=== PATIENT | female | born 1950 | race Caucasian/White ===

== ENCOUNTER 2017-10-13 09:22 | Day surgery (SDC) | payer MEDICARE ==
--- NOTE | 2017-10-13 07:31 | History and Physical Report ---
DATE: 10/13/17. CHIEF COMPLAINT AND HISTORY OF CHIEF COMPLAINT: This patient presents with a history of a thoracic and lumbar radiculopathy. Due to the failure of therapy, a spinal cord stimulator trial was conducted on 09/07/2017 with 75 to 85 percent pain control. Due to the failure of therapy and the success of the trial, the patient presents today for implantation of a permanent system. PAST MEDICAL HISTORY: Chronic obstructive pulmonary disease. PAST SURGICAL HISTORY: To be provided. MEDICATIONS ON ADMISSION: To be provided. ALLERGIES: None. SOCIAL HISTORY: Noncontributory. FAMILY HISTORY: Cancer, cerebrovascular disease. REVIEW OF SYSTEMS: The patient seems appropriate and in no acute distress. The remainder of the systems review shows head and neck pain, breathing difficulties, peripheral edema. PHYSICAL EXAMINATION: General: Height and weight are not available. Weight: Unavailable. Vital Signs: Unavailable. HEENT: Within normal limits. Lungs: Clear. Heart: Regular rate and rhythm. Abdomen: Nontender. Musculoskeletal: Examination of the musculoskeletal system shows diffuse tenderness throughout the lumbar spine. Range of motion produces pain into the low back and into both lower extremities. Sensory and motor field function appears to be intact. There are some mild sensory deficits across L4 and L5. There is pain extending all the way into the midthoracic region and extending along the rib margins. Functionality of the upper and lower extremities is intact. Ambulation: No assistive device utilized. Neurologic: Cranial nerves are intact. IMPRESSION: LUMBAR AND THORACIC RADICULOPATHY, ICD-10 CODE M54.16 AND M54.14. PLAN: The patient is here for implantation of a permanent spinal cord stimulator after a successful trial. The procedure will be considered outpatient, although an overnight stay will be evaluated. JOB NUMBER: [id number] cc: Dr. Nany FISHER
[~2017-10-13 09:22] MED LIST: ACETAMINOPHEN 1,000 MG/100 ML BTL IV ONE; CEFAZOLIN 2 Gram 2 GM/50 ML BAG IVPB ONE; FAMOTIDINE 20MG TABLET PO ONE; MECLIZINE 25 MG TABLET PO ONE; METOCLOPRAMIDE 10 MG TABLET PO ONE
[2017-10-13] MEDS ORDERED: FENTANYL PF 0.25MG/5ML AMPUL IV ONE (09:23)
[2017-10-13] MEDS ORDERED: DEXAMETHASONE 4 MG/ML 1ML VIAL IVP ONE (09:23)
[2017-10-13] MEDS ORDERED: FLUMAZENIL 1MG/10ML VIAL IV ONE (09:23)
[2017-10-13] MEDS ORDERED: PROPOFOL 10 MG/ML VIAL IV ONE (09:23)
[2017-10-13] MEDS ORDERED: MIDAZOLAM HCL 2MG/2ML VIAL IV ONE (09:23)
[2017-10-13] MEDS ORDERED: CEFAZOLIN 1G VIAL IM ONE (09:23)
[2017-10-13] MEDS ORDERED: FENTANYL PF 100MCG/2ML VIAL IV ONE (09:23)
[2017-10-13] MEDS ORDERED: LIDOCAINE 1% W/EPI 1:200,000 MPF 30ML SQ ONE (09:23)
[2017-10-13] MEDS ORDERED: BUPIVACAINE 0.5% W/EPI MPF 30 ML VIAL IVP ONE (09:23)
[2017-10-13] MEDS ORDERED: LIDOCAINE 2% MDV (20MG/ML) 20ML VIAL IV ONE (09:23)
[2017-10-13] MEDS ORDERED: HYDROCODONE/APAP 7.5/325MG TABLET PO PRN ×2 (13:58)
[2017-10-13] MEDS ORDERED: OXYCODONE/APAP 10MG-325MG TABLET PO PRN ×2 (13:58)
--- NOTE | 2017-10-14 20:06 | Operative Note - [facility] ---
DATE OF SURGERY: 10/13/17 PREOPERATIVE DIAGNOSES: THORACIC AND LUMBAR RADICULITIS, ICD-10 CODE = M54.14 AND M54.16. SURGERY: 1. FLUOROSCOPIC-GUIDED EPIDURAL ACCESS RIGHT T11-12, PLACEMENT OF SPINAL CORD STIMULATOR LEAD 1, A [employer] IN[employer]INION 16 WITH 6 ELECTRODES POSITIONED LEFT AT T6. 2. FLUOROSCOPIC-GUIDED EPIDURAL ACCESS RIGHT T12-L1, PLACEMENT OF SPINAL CORD STIMULATOR LEAD 2, A [employer] 16 WITH 6 ELECTRODES POSITIONED RIGHT T6. 3. COMPLEX PROGRAMMING OF LEAD 1, OVER 20 MINUTES FOLLOWED BY COMPLEX PROGRAMMING OF LEAD 2, OVER 20 MINUTES. 4. INCISION, SUBCUTANEOUS DISSECTION, AND ANCHORING OF LEAD 1 AND LEAD 2 TO THE DEEP FASCIA USING A [employer]ENTIFIC LOCKING ANCHOR. 5. INCISION, SUBCUTANEOUS DISSECTION, AND CREATION OF SUBCUTANEOUS POUCH AT RIGHT POSTERIOR SUPERIOR GLUTEAL MARGIN FOR PLACEMENT OF GENERATOR IDENTIFIED A [employer], RECHARGEABLE, REPROGRAMMABLE. 6. TUNNELING BETWEEN LEAD POUCHES INTO GENERATOR POUCH INTERFACING EACH LEAD WITH GENERATOR. 7. PLACEMENT OF GENERATOR POUCH SECURING TO POSTERIOR FASCIA WITH NONABSORBABLE SUTURE. PLACEMENT OF LEADS INTO POUCH WITH CLOSURE OF BOTH INCISIONS WITH VICRYL FOR FASCIA, RUNNING SUBCUTICULAR VICRYL FOR SKIN. DERMABOND CLOSURE. 8. COMPLEX PROGRAMMING INTERNAL GENERATOR HOME USE, TWO STIMULATORS, RECOVERY ROOM 20 MINUTES. SURGEON: BARRETT ALEJANDRE D.O. ANESTHESIA: LOCAL SEDATION. ANESTHESIA PROVIDER: JOVANY JALLOH CRNA. INDICATIONS: This patient presents with a history of intractable lumbar radiculopathy and thoracic radiculopathy. Due to the failure of therapy, a spinal cord stimulator trial was conducted with 75 to 85% pain control. Due to the failure of all therapies and the success of the trial, she presents today for implantation of a permanent system. SURGERY: Intravenous line, vital sign monitoring, IV sedation, prepped and draped sterile technique. Patient positioned prone. Sterile prep, sterile technique, and under imaging, right of the midline, the epidural interspace at 12-1 and 11-12 were infiltrated and then using two Epimed needles with loss-of- resistance, the space was accessed. At 11-12, spinal cord stimulator lead 1, a [employer] Infinion 16 with 6 electrodes positioned left at T6. With the epidural access, same technique at 12-1 of spinal cord stimulator lead 2, a [employer] Infinion 16 with 6 electrodes, positioned right at T6. Complex programming of lead 1 over 20 minutes followed by complex programming of lead 2 over 20 minutes resulting in a complete pattern of stimulation across the back and into the legs with the patient indicating we are in all of the areas of the pain. She was given the option to implant or continue to program and she opted to implant. Questions were repeated with the same response. The skin above and below each needle infiltrated, incision made, and subcutaneous dissection was conducted to the supraspinous fascia. Each lead was then anchored to the supraspinous fascia with a [employer] locking anchor. At the right posterior superior gluteal margin, a site picked by the patient for the generator, skin infiltrated, incision made, and subcutaneous dissection was conducted to form a pouch of suitable size and depth for the generator. Antibiotic irrigation and Bovie for hemostasis. The generator was placed into the pouch and secured to the fascia with nonabsorbable suture. The leads were placed into their own pouch and then both incisions were closed with Vicryl for fascia and a running subcuticular Vicryl for skin. A Dermabond closure was then used to approximate the edges of both wounds. She was transported to the Recovery Room stable showing no side-effects from the procedure or the sedation. When fully awake and alert, by her request she was prepared for discharge. DISCHARGE INSTRUCTIONS: 1. The sites will remain clean and dry. No showering or bathing in any way that would disrupt dressings, although the Dermabond will allow showing in 24 to 48 hours. 2. Standard medications resumed, including Levaquin, the antibiotic 500 mg once a day for 14 days. 3. The office will contact the patient at home to set up an appointment to evaluate the incisions in 7 to 10 days. Until then, her activity level should stay low. All other instructions provided, numbers to contact if problems given. She was then prepared for discharge. cc: Primary JOB NUMBER: [id number] [facility]
--- NOTE | 2017-10-15 09:27 | RADIOLOGY REPORT ---
EXAM: AP THORACOLUMBAR SPINE HISTORY: POST SPINAL CORD STIMULATOR IMPLANT. TECHNIQUE: A single AP view of the thoracolumbar spine was obtained. Comparison: None. FINDINGS: There is a battery pack overlying the right lower quadrant of the abdomen. Wires extend from this to the spine at the L3 level and then ascend up to the level of the body of T6. There appear to be vertebroplasties involving the bodies of T12 and L1. IMPRESSION: SPINAL STIMULATOR WIRES EXTEND UP TO THE T6 LEVEL. JOB NUMBER: [id number] [facility]
== END 2017-10-13 15:05 | disposition home or self-care (01) ==
LOC: SUR 09:22 → MEDSURG 13:54 → SUR 15:05
PROVIDERS: ATTEND Pain Medicine Interventional Pain Medicine
DX: M54.14 Radiculopathy, thoracic region (principal); M54.16 Radiculopathy, lumbar region; I10 Essential (primary) hypertension; J44.9 Chronic obstructive pulmonary disease, unspecified; E78.00 Pure hypercholesterolemia, unspecified
CPT/HCPCS: 63650; 63685; 00300; 95972; 72020; J0690; C1820; C1883